=== PATIENT | male | born 1995 | race Caucasian/White ===

== ENCOUNTER 2019-11-10 14:23 | Emergency (ER) | payer OTHER, SELFPAY ==
--- NOTE | ~2019-11-10 | XR_ITS ---
EXAMINATION: XR foot RT min 3V EXAM DATE: 11/10/2019 15:00 INDICATION: Initial encounter following injury, with pain of the right foot. TECHNIQUE: Right foot dorsoplantar, lateral and oblique projections obtained and reviewed. There is no prior study for comparison. FINDINGS: Right metatarsal bones unremarkable. There is acute closed posttraumatic nondisplaced fra cture through the proximal aspect right fifth metatarsal shaft. There is overlying soft tissue swelli ng. No other acute findings. IMPRESSION: Right Dumont fracture. Reviewed, dictated and finalized at location B. ICAL ECONOMIST IMPRESSION: Right Dumont fracture.
--- NOTE | 2019-11-10 14:27 | ED.GENADULT ---
HPI - General Adult General Chief complaint: Extremity Injury, Lower Stated complaint: Right Foot injury Time Seen by Provider: 11/10/19 14:27 Source: patient Mode of arrival: ambulatory Limitations: no limitations History of Present Illness HPI narrative: 24-year-old male [facility] of right foot pain. Patient states that he was in dance class yesterday and was doing some sidestepping and rolled his right foot and heard a crack. Patient states he has been having pain there since then. Patient states he has been taking ibuprofen for his pain. Denies any numbness or tingling to the toes. Patient states he has been walking on it but does have pain when doing so. Patient states he does have a primary doctor at this time. Related Data Home Medications Medication Instructions Recorded Confirmed aripiprazole mg 11/10/19 duloxetine mg PO 11/10/19 quetiapine 11/10/19 Allergies Allergy/AdvReac Type Severity Reaction Status Date / Time metoclopramide Allergy Mild HIVES Verified 05/25/18 03:39 nafcillin Allergy Unknown Unknown Verified 05/25/18 02:39 Review of Systems Review of Systems: Narrative: CONSTITUTIONAL: Denies fever, chills, or sweats. EYES: Denies visual changes, redness, or discharge. ENT: Denies rhinorrhea, congestion, sore throat, or otalgia. CARDIOVASCULAR: Denies chest pain, palpitations, or edema. RESPIRATORY: Denies cough or dyspnea. GASTROINTESTINAL: Denies abdominal pain, nausea, vomiting, or diarrhea. GENITOURINARY: Denies dysuria or hematuria. SKIN: Denies rash or itching. MUSCULOSKELETAL: Denies back pain, joint pain, or myalgia. Right foot pain since yesterday NEUROLOGIC: Denies headache, numbness, or weakness. PSYCHIATRIC: Denies anxiety or depression. PMFSH Comments At the time of my signature I agree with nursing past medical history, surgical, social, and family history. There is no relevant family history pertinent to the presenting complaint. Exam Narrative: Exam Narrative: GENERAL: Well-appearing, well-nourished, and in no acute distress. HEAD: Normocephalic, atraumatic. EYES: PERRLA and EOMI. ENT: Nares clear, no rhinorrhea or epistaxis. Mucous membranes moist. NECK: Supple. No lymphadenopathy CHEST: Clear to auscultation. No respiratory distress. HEART: Regular rate and rhythm. No murmur heard. Normal peripheral pulses. ABDOMEN: Soft, nontender, nondistended, normal active bowel sounds. EXTREMITIES: Patient able to bear weight and ambulate with increased pain to the right foot. No surface trauma, ecchymosis noted on the lateral side of the right foot with slight erythema. No lesions, ulcers or break in skin integrity. The R foot is without obvious asymmetry or deformity when compared to the L foot. No bony step-off, nontender to palpation over the toes, hindfoot or sole. Tenderness over the midfoot on the lateral side of the right foot. Normal plantar/dorsiflexion but does have increase in pain with this motion, normal inversion/eversion. Distal motor and neurovascular status are intact SKIN: Warm, dry, no rash. NEURO: No focal deficits. Alert and oriented x3. Course Vital Signs Vital signs: Vital Signs Temperature 36.6 C 11/10/19 14:38 Pulse Rate 67 11/10/19 14:38 Respiratory Rate 11/10/19 14:38 Blood Pressure 110/79 11/10/19 14:38 Pulse Oximetry 100 11/10/19 14:38 Temperature 36.6 C 11/10/19 14:38 Pulse Rate 67 11/10/19 14:38 Respiratory Rate 11/10/19 14:38 Blood Pressure 110/79 11/10/19 14:38 Pulse Oximetry 100 11/10/19 14:38 Vital signs reviewed. Medical Decision Making Differential Diagnosis Differential Diagnosis: Differential diagnosis: Foot fracture, crush injury, compartment syndrome, contusion, sprain, tendinitis,lisfranc sprain or fracture, avulsion fracture, grown toenail, diabetic ulcer. Notify patient that I am still waiting on the read from the radiologist however and seen at the
[2019-11-10 14:38] VITALS: BP 110/79; PULSE 67; RESP 20; TEMP 36.6; O2SAT 100
== END 2019-11-10 15:31 | disposition home or self-care (01) ==
PROVIDERS: Emergency Provider Nurse Practitioner Family
DX: S92.354A Nondisplaced fracture of fifth metatarsal bone, right foot, initial encounter for closed fracture (principal); X50.9XXA Other and unspecified overexertion or strenuous movements or postures, initial encounter; Y93.41 Activity, dancing
CPT/HCPCS: 73630; 99214; G0463

== ENCOUNTER 2023-12-02 15:00 | Emergency (ER) | payer OTHER, SELFPAY ==
--- NOTE | ~2023-12-02 | XR_ITS ---
EXAMINATION: XR chest 2V Exam Date/Time: 12/02/2023 15:27 CDT HISTORY: cough, URI Comparison: None. RESULT: Lines, tubes, and devices: Abandoned pacing lead. Old sternotomy wires. Lungs and pleura: No volumes with crowding, otherwise clear. Cardiomediastinal silhouette: Stable. Other: No acute osseous or upper abdominal finding. IMPRESSION: No acute cardiopulmonary process. Reviewed, dictated and finalized at location K.
[2023-12-02 15:02] VITALS: BP 132/81; PULSE 105; RESP 18; TEMP 36.8; O2SAT 99
--- NOTE | 2023-12-02 15:20 | ED.URI ---
HPI - URI/Sore Throat General Chief Complaint: Upper Respiratory Infection Stated Complaint: URI Time Seen by Provider: 12/02/23 15:20 Source: patient Mode of arrival: ambulatory Limitations: no limitations History of Present Illness HPI Narrative: Patient is a 28 y/o male who presents the ED with report of URI sx's since Friday night/Friday. Patient complains of fatigue, myalgias, diaphoresis, rhinorrhea, congestion, cough. Denies any known fevers, vomiting, CP. Has been taking Dayquil and Nyquil with some relief. Denies known sick contacts. He is vaccinated for COVID/flu. Related Data Home Medications Medication Instructions Recorded Confirmed aripiprazole 5 mg tablet mg 11/10/19 duloxetine 30 mg capsule,delayed mg PO 11/10/19 release quetiapine 25 mg tablet 11/10/19 Allergies Allergy/AdvReac Type Severity Reaction Status Date / Time metoclopramide Allergy Mild HIVES Verified 12/22/19 08:56 nafcillin Allergy Unknown Unknown Verified 12/22/19 08:56 Review of Systems Review of Systems: CONSTITUTIONAL: see HPI ENT: See HPI. CARDIOVASCULAR: Denies chest pain, palpitations, or edema. RESPIRATORY: See HPI. GASTROINTESTINAL: Denies abdominal pain, vomiting, or diarrhea. MUSCULOSKELETAL: Reports myalgia. 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 CANNOT HAVE MRI Family History Family History Father , auto-immune interstitial lung disease No problems noted. Exam Narrative: GENERAL: Well appearing, obese with BMI of 36.2, non-toxic, in no acute distress. HEAD: Normocephalic, atraumatic. RESPIRATORY: Airway patent, respirations nonlabored. Clear to auscultation bilaterally, no rales, rhonchi, wheezing. No focal lungs sounds. CARDIOVASCULAR: Regular rate and rhythm, +murmur MUSCULOSKELETAL: Moves all extremities. No gross deformities. SKIN: Warm, dry, normal color. NEURO: A&O X3. Speech clear. PSYCHIATRIC: Appropriate mood and affect. Normal interaction. Course Vital Signs Vital signs: Vital Signs Temperature 98.2 F 12/02/23 15:02 Pulse Rate 105 H 12/02/23 15:02 Respiratory Rate 18 12/02/23 15:02 Blood Pressure 132/81 12/02/23 15:02 Pulse Oximetry 99 12/02/23 15:02 Oxygen Delivery Room Air 12/02/23 15:02 Temperature 98.2 F 12/02/23 15:02 Pulse Rate 105 H 12/02/23 15:02 Respiratory Rate 18 12/02/23 15:02 Blood Pressure 132/81 12/02/23 15:02 Pulse Oximetry 99 12/02/23 15:02 Oxygen Delivery Room Air 12/02/23 17:10 MDM - URI/Sore Throat MDM Narrative Medical decision making narrative: patient presented to ED with 2 day history of URI symptoms. Vital signs are stable upon arrival. Patient no acute distress. No respiratory distress or compromise. Viral swabs negative. Chest x-ray clear. Discussed likelihood of viral URI, management of such. Will send in prescriptions for Tessalon Perles and albuterol. Given return precautions. Discharged in stable condition. Vital signs remained stable at time of D/C. Medical Records Attestation: I reviewed the patient's medical records. Lab Data Attestation: I reviewed the patient's lab results. Labs: Lab Results 12/02/23 Range/Units 15:49 Influenza A (RT-PCR) Negative (Negative) Influenza B (RT-PCR) Negative (Negative) RSV (RT-PCR) Negative (Negative) SARS-CoV-2 RNA (RT-PCR) Negative (Negative)
[2023-12-02 16:51] LABS: Influenza A QL RT-PCR Negative (Negative); Influenza B QL RT-PCR Negative (Negative); RSV RNA, RT-PCR Negative (Negative); SARS-CoV-2 RNA PCR Negative (Negative)
== END 2023-12-02 17:50 | disposition home or self-care (01) ==
PROVIDERS: Emergency Provider Physician Assistant
DX: J06.9 Acute upper respiratory infection, unspecified (principal); F90.9 Attention-deficit hyperactivity disorder, unspecified type; F41.9 Anxiety disorder, unspecified; F32.A Depression, unspecified; Z87.74 Personal history of (corrected) congenital malformations of heart and circulatory system; Z20.822 Contact with and (suspected) exposure to COVID-19
CPT/HCPCS: 71046; 87637; 99283

== ENCOUNTER 2024-06-22 07:43 | Emergency (ER) | payer OTHER, SELFPAY ==
[2024-06-22 07:48] VITALS: BP 134/96; PULSE 87; RESP 15; TEMP 36.7; O2SAT 99
[2024-06-22 07:57] VITALS: O2SAT 98
--- NOTE | 2024-06-22 07:58 | PC.NURSE ---
Pt c/o sore throat, cough x2 days with vomiting this morning. Throat slightly angeline.
[2024-06-22] MEDS: SODIUM CHLORIDE 0.9% IV 1,000 ML 999 ML IV CONT (09:14)
[2024-06-22] MEDS: ONDANSETRON INJ 4 MG/2 ML VIAL IV PUSH (09:14)
[2024-06-22 09:15] VITALS: BP 125/79; PULSE 80; RESP 18; TEMP 36.8; O2SAT 99
[2024-06-22 09:18] LABS: Strep Group A RT-PCR NOT DETECTED (Negative)
--- NOTE | 2024-06-22 09:31 | ED.NAVMDI ---
HPI - Nausea/Vomiting/Diarrhea General Chief complaint: Upper Respiratory Infection Stated complaint: I just threw up at work Time Seen by Provider: 06/22/24 08:23 History of Present Illness HPI Narrative: Pt had emesis several times this morning at work. Pt has felt nauseated and not right the last couple of days but has not vomited before today. Pt denies abdominal pain or diarrhea. Pt has mild sore throat. Pt denies fever. Pt denies sick contacts or bad food. Related Data Home Medications Medication Instructions Recorded Confirmed aripiprazole 5 mg tablet mg 11/10/19 duloxetine 30 mg capsule,delayed mg PO 11/10/19 release quetiapine 25 mg tablet 11/10/19 Allergies Allergy/AdvReac Type Severity Reaction Status Date / Time metoclopramide Allergy Mild HIVES Verified 06/22/24 07:47 nafcillin Allergy Unknown Unknown Verified 06/22/24 07:47 Review of Systems Review of Systems: All systems reviewed & are unremarkable except as noted in HPI and below PMFSH Past Medical History Medical History (Updated 06/22/24 @ 09:49 by Valeria Sifuentes III, DO) ADHD (attention deficit hyperactivity disorder) evaluation Anxiety and depression Keloid skin disorder Metatarsal bone fracture Vision loss Surgical History Surgical History 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 CANNOT HAVE MRI Family History Family History Father , auto-immune interstitial lung disease No problems noted. Exam Const: General: healthy appearing and no acute distress Nutritional Appearance: well nourished Orientation/consciousness: patient oriented x3 Limitations: no limitations Neck: Neck: normal visual inspection and no lymphadenopathy Resp: Effort & Inspection: normal respiratory effort Auscultation: clear to auscultation bilaterally Cardio: Rate: regular rate Rhythm: regular rhythm GI: GI Palp: Yes Soft to palpation and No Tenderness to palpation present (GI) Auscultation: normal bowel sounds Back/Spine/Pelvis: Back: no CVA tenderness Skin: General skin exam: normal color Rashes: no rashes Wounds: no wounds Neuro: General: patient oriented x3, moves all extremities, no meningeal signs, no focal motor deficits and CN's II-XI intact bilaterally Cranial nerves: Yes Nystagmus not present Speech: normal speech Extrem: General: normal to inspection and no clubbing, cyanosis or edema Psych: Mental Status: mental status grossly normal Affect: normal affect Course Vital Signs Vital signs: Vital Signs Temperature 98.1 F 06/22/24 07:48 Pulse Rate 87 06/22/24 07:48 Respiratory Rate 15 06/22/24 07:48 Blood Pressure 134/96 H 06/22/24 07:48 Pulse Oximetry 99 06/22/24 07:48 Oxygen Delivery Room Air 06/22/24 07:48 Temperature 98.1 F 06/22/24 10:24 Pulse Rate 89 06/22/24 10:24 Respiratory Rate 18 06/22/24 10:24 Blood Pressure 127/80 06/22/24 10:24 Pulse Oximetry 99 06/22/24 10:24 Oxygen Delivery Room Air 06/22/24 07:57 MDM - Nausea/Vomiting/Diarrhea MDM Narrative Medical decision making narrative: likely gastroenteritis but pt concerned about covid or strep so will screen for those and give IV fluids and zofran. swabs neg. Pt feels better afer zofran and fluds. home on zofran. Lab Data Labs: Lab Results 06/22/24 Range/Units 08:43 Influenza A (RT-PCR) Negative (Negative) Influenza B (RT-PCR) Negative (Negative) RSV (RT-PCR) Negative (Negative) SARS-CoV-2 RNA (RT-PCR) Negative (Negative) Group A Strep (PCR) Not detected (Negative) Discharge Plan Discharge Clinical Impression: Gastroenteritis Patient Disposition: Home, Self-Care Condition: Improved Instructions: Antibiotic Form, Gastroen
[2024-06-22 09:32] LABS: Influenza A QL RT-PCR Negative (Negative); Influenza B QL RT-PCR Negative (Negative); RSV RNA, RT-PCR Negative (Negative); SARS-CoV-2 RNA PCR Negative (Negative)
[2024-06-22 10:24] VITALS: BP 127/80; PULSE 89; RESP 18; TEMP 36.7; O2SAT 99
== END 2024-06-22 10:26 | disposition home or self-care (01) ==
PROVIDERS: Emergency Provider Emergency Medicine
DX: K52.9 Noninfective gastroenteritis and colitis, unspecified (principal); Z20.822 Contact with and (suspected) exposure to COVID-19; F90.9 Attention-deficit hyperactivity disorder, unspecified type; F41.9 Anxiety disorder, unspecified; F32.A Depression, unspecified
CPT/HCPCS: 87637; 87651; 96361; 96374; 99284; J2405; J7030

== ENCOUNTER 2025-05-19 11:32 | Emergency (ER) | payer BC, MEDICAID, SELFPAY ==
[2025-05-19 11:52] VITALS: BP 127/92; PULSE 79; RESP 16; TEMP 36.6; O2SAT 98
--- NOTE | 2025-05-19 12:02 | ED_ITS ---
HPI - Nausea/Vomiting/Diarrhea General Chief complaint: Nausea/Vomiting/Diarrhea Stated complaint: Vomiting Source: patient and RN notes reviewed Mode of arrival: ambulatory Limitations: no limitations History of Present Illness HPI Narrative: 29 y/o male presented with c/o n/v/d. Onset today. Says after eating a chicken breakfast sandwich he vomited while at work. He was sent home, then had an episode of diarrhea. Denies abdominal pain, Hematochezia, melena, hematemesis, body aches, fever or lethargy. Related Data Home Medications ?Medication ?Instructions ?Recorded ?Confirmed ?Last Taken ?Type aripiprazole 5 mg tablet mg 11/10/19 Unknown History duloxetine 30 mg capsule,delayed mg PO 11/10/19 Unkno wn History release quetiapine 25 mg tablet 11/10/19 Unknown History atomoxetine 18 mg capsule mg PO 05/19/25 Unknown Hist ory clonidine HCl 0.1 mg tablet mg 05/19/25 Unknown Histo ry hydroxyzine HCl 10 mg tablet mg 05/19/25 Unknown Hist ory Allergies Allergy/AdvReac Type Severity Reaction Status Date / Time metoclopramide Allergy Mild HIVES Verified 05/19/25 11:50 nafcillin Allergy Unknown Unknown Verified 05/19/25 11:50 Review of Systems Review of Systems: CONSTITUTIONAL: Denies body aches, fever, chills ENT: Denies rhinorrhea, congestion CARDIOVASCULAR: Denies chest pain, palpitations, or edema. RESPIRATORY: Denies cough or dyspnea. GASTROINTESTINAL: Endorses nausea, vomiting, diarrhea. Denies abdominal pain, hematochezia, melena, hematemesis GENITOURINARY: Denies dysuria, hematuria, or CVA tenderness. SKIN: Denies rash, itching, or wounds. MUSCULOSKELETAL: Denies back pain, joint pain, or myalgia. NEUROLOGIC: Denies headache, numbness, tingling, or weakness. All systems reviewed & are unremarkable except as noted in HPI and below PMFSH Past Medical History Medical History (Updated 05/19/25 @ 12:04 by Samira Funes APRN) Metatarsal bone fracture ADHD (attention deficit hyperactivity disorder) evaluation Anxiety and depression Keloid skin disorder Vision loss Surgical History Surgical History Hx of cardiac pacemaker Has been removed, but lead wire remains. 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 Comments At time of signature, I have reviewed and agree with nursing past medical, surgical, social and family history unless otherwise noted. Please see nursing chart for further information. There is no relevant family history pertinent to the presenting complaint Exam Narrative: GENERAL: Well-appearing, and in no acute distress. EYES: EOMI. Conjunctivae normal. ENT: Mucous membranes pink and moist. CHEST: No respiratory distress. Clear to auscultation. HEART: Regular rate and rhythm. No murmur appreciated. Normal peripheral pulses. ABDOMEN: abd soft, nondistended, normal active bowel sounds. nontender abdomen; No guarding, rebound tenderness, asymmetry EXTREMITIES: Normal range of motion. No edema. SKIN: Warm, dry, no rash. Capillary refill normal. Normal skin turgor. NEURO: No focal deficits. Alert and oriented x3. PSYCH: Normal affect. Course Course Emergency Course: Patient is aware of diagnosis, understands and agrees to treatment plan. Anticipatory guidance given. Patient agrees to follow-up as directed and is aware of reasons to seek care at the emergency department. Portions of this record may have been created with voice recognition software Level of Care: Express Care Visit Vital Signs Vital signs: Vital Signs Temperature 97.8 F 05/19/25 11:52 Pulse Rate 79 05/19/25 11:52 Respiratory Rate 16 05/19/25 11:52 Blood Pressure 127/92 H 05/19/25 11:52 Pulse Oximetry 98 05/19/25 11:52 Oxygen Delivery Room Air 05/19/25 11:52 Temperature 97.8 F 05/19/25 11:52 Pulse Rate 79 05/19/25 11:52 Respiratory Rate 16 05/19/25 11:52 Blood Pressure 127/92 H 05/19/25 11:52 Pulse Oximetry 98 05/19/25 11:52 Oxygen Delivery Room Air 05/19/25 11:52 MDM - Nausea/Vomiting/Diarrhea MDM Narrative Medical decision making narrative: Discussed physical exam findings. Advised supportive measures and signs/symptoms to go to the ER. Pt is appropriate for outpt treatment and f/u. Differential Diagnosis Differential diagnosis: Likely traveler's diarrhea, food poisoning, gastroenteritis, drug-induced nausea and vomiting and dehydration Discharge Plan Discharge Clinical Impression: Nausea vomiting and diarrhea Patient Disposition: Home Condition: Stable Instructions: Gastroenteritis (ED), Acute Nausea and Vomiting (ED) Additional Instructions: Stay hydrated. Take small sips of fluid containing electrolytes frequently. Clear liquids (broth, jello, tea, sprite, pedialyte) [place] foods (bananas, rice, applesauce, toast, crackers) Avoid fatty, greasy, fried or spicy foods. Limit dairy until symptoms are improved. [id number] Imodium according to package directions if needed for pe rsistent diarrhea Recommend probiotic such as align or lactobacillus to help with symptoms. Ondansetron as needed for nausea You should go to the hospital if you experience persistent nausea and vomiting that does not resolve and does not allow you to tolerate any food or fluids, fevers, increasing abdominal pain, persistent diarrhea, dizziness, fainting, or for any other concerns. Follow up with primary care provider in 3 days. Patient Language: [place] Island[place] Prescriptions: New ondansetron 4 mg tablet,disintegrating 4 mg PO Q8H PRN (Reason: nausea and vomiting) Qty: 6 0RF No Action quetiapine 25 mg tablet aripiprazole 5 mg tablet duloxetine 30 mg capsule,delayed release(DR/EC) PO tramadol 50 mg tablet 50 mg PO Q6H PRN (Reason: pain) Qty: 10 0RF clonidine HCl 0.1 mg tablet hydroxyzine HCl 10 mg tablet atomoxetine 18 mg capsule PO benzonatate 200 mg capsule 200 mg PO TID PRN (Reason: cough) Qty: 15 0RF albuterol sulfate 90 mcg/actuation HFA aerosol inhaler 2 puff inhalation QID PRN (Reason: shortness of breath or wheezing) Qty: 6.7 0RF ondansetron 4 mg tablet,disintegrating 4 mg PO Q8H PRN (Reason: nausea and vomiting) Qty: 14 0RF Follow-up/Referrals: PHYSICIAN,DIELECTRIC EMBOSSING MACHINE OPERATOR [Primary Care Provider, Internal Medicine] Stand Alone Forms: Work/School Release IP Time of Disposition: 12:06
[2025-05-19] MEDS: ONDANSETRON HCL ODT 4 MG TABLET PO (12:15)
== END 2025-05-19 12:35 | disposition home or self-care (01) ==
PROVIDERS: Emergency Provider Nurse Practitioner Family
DX: R11.2 Nausea with vomiting, unspecified (principal); R19.7 Diarrhea, unspecified; F41.9 Anxiety disorder, unspecified; F32.A Depression, unspecified; F90.9 Attention-deficit hyperactivity disorder, unspecified type
CPT/HCPCS: 99213; A9270; G0463

== ENCOUNTER 2025-06-04 10:24 | Emergency (ER) | payer BC, MEDICAID, SELFPAY ==
--- NOTE | 2025-06-04 10:32 | ED_ITS ---
HPI - URI/Sore Throat General Chief Complaint: Upper Respiratory Infection Stated Complaint: cough, sore throat, sneezing, muscle fatigue Time Seen by Provider: 06/04/25 10:46 Source: patient and RN notes reviewed Mode of arrival: ambulatory Limitations: no limitations History of Present Illness HPI Narrative: 29-year-old male presents concern for sore throat that started last night. Reports sneezing muscle aches. He denies fever, chills, sweats, runny nose, stuffy nose. MD elicited complaint: sore throat Related Data Home Medications ?Medication ?Instructions ?Recorded ?Confirmed ?Last Taken ?Type aripiprazole 5 mg tablet 5 mg 11/10/19 Unknown Histo ry duloxetine 30 mg capsule,delayed 30 mg PO 11/10/19 Un known History release quetiapine 25 mg tablet 25 mg 11/10/19 Unknown Hist ory atomoxetine 18 mg capsule 18 mg PO 05/19/25 Unknown H istory clonidine HCl 0.1 mg tablet mg 05/19/25 Unknown Histo ry hydroxyzine HCl 10 mg tablet 10 mg 05/19/25 Unknown H istory Allergies Allergy/AdvReac Type Severity Reaction Status Date / Time metoclopramide Allergy Mild HIVES Verified 06/04/25 10:35 nafcillin Allergy Unknown Unknown Verified 06/04/25 10:35 Review of Systems Review of Systems: CONSTITUTIONAL: Denies malaise, chills, sweats, or fever. EYES: Denies visual changes, redness, or discharge. ENT: Denies rhinorrhea, congestion, sinus pain, otalgia. Reports sore throat. CARDIOVASCULAR: Denies chest pain, palpitations, or edema. RESPIRATORY: Denies cough. Denies dyspnea. GASTROINTESTINAL: Denies abdominal pain, nausea, vomiting, diarrhea SKIN: Denies rash or itching. MUSCULOSKELETAL: Reports myalgia. NEUROLOGIC: Denies headache. All systems reviewed & are unremarkable except as noted in HPI and below PMFSH Past Medical History Medical History (Updated 06/04/25 @ 10:53 by Rylee Martins NP) Metatarsal bone fracture ADHD (attention deficit hyperactivity disorder) evaluation Anxiety and depression Keloid skin disorder Vision loss Surgical History Surgical History Hx of cardiac pacemaker Has been removed, but lead wire remains. 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 Comments At time of signature, agree with nursing past medical, surgical, social and family history. There is no relevant family history pertinent to the presenting complaint Exam Narrative: GENERAL: Well-appearing, well-nourished, and in no acute distress. HEAD: Normocephalic EYES: PERRLA, conjunctivae clear ENT: Nares clear. Mucous membranes moist. TM pearly willson with dull light reflex bilaterally; no tragal tenderness. Oropharynx erythematous without lesions. Tonsils not enlarged and without exudate, no drooling, no hoarseness, no trismus, uvula midline. NECK: Supple. No lymphadenopathy CHEST: Clear to auscultation, breath sounds equal. No wheezing, rhonchi, rales, or stridor. No respiratory distress, speaks in full sentences. HEART: Regular rate and rhythm. No murmur heard. SKIN: Warm, dry, no rash. NEURO: Alert and oriented x3. PSYCH: Normal mood and affect Course Course Emergency Course: Patient is aware of diagnosis, understands and agrees to treatment plan. Anticipatory guidance given. Patient agrees to follow-up as directed and is aware of reasons to seek care at the emergency department. Portions of this record may have been created with voice recognition software Level of Care: Express Care Visit Vital Signs Vital signs: Vital Signs Temperature 96.6 F L 06/04/25 10:39 Pulse Rate 47 L 06/04/25 10:39 Respiratory Rate 16 06/04/25 10:39 Blood Pressure 124/56 L 06/04/25 10:39 Pulse Oximetry 99 06/04/25 10:39 Temperature 96.6 F L 06/04/25 10:39 Pulse Rate 47 L 06/04/25 10:39 Respiratory Rate 16 06/04/25 10:39 Blood Pressure 124/56 L 06/04/25 10:39 Pulse Oximetry 99 06/04/25 10:39 Reviewed. MDM - URI/Sore Throat MDM Narrative Medical decision making narrative: Differential diagnosis considered: Bermudez virus, strep pharyngitis, allergic rhinitis, upper respiratory tract infection, sinusitis, rhinosinusitis, nasopharyngitis. viral pharyngitis, otitis media, otitis externa, pneumonia, bronchitis, viral cough syndrome, viral syndrome, and influenza. Exam findings show no acute concerns or changes; patient is non-toxic appearing and is in no distress. Patient is appropriate for outpatient treatment and follow-up. Lab Data Attestation: I reviewed the patient's lab results. Labs: Lab Results 06/04/25 Range/Units 10:30 POC Influenza A Ag Negative (Negative) POC Influenza B Ag Negative (Negative) POC SARS CoV-2 Ag Negative (Negative) POC Grp A Strep Screen Positive (Negative) Critical Care Time Critical Care Time Critical Care Time: No Discharge Plan Discharge Clinical Impression: Acute streptococcal pharyngitis Patient Disposition: Home Condition: Stable Instructions: Antibiotic Form, Strep Throat (ED) Additional Instructions: -Take the medication as prescribed. Throw away the toothbrush after 24hours of antibiotic. -Eat and drink things that are easy to swallow, like tea or soup, or popsicles to suck on. -Oral rinses such as: Salt water gargles and/or may use topical anesthetic (eg. Chloraseptic spray) or lozenges to relieve dryness or throat pain). -Take Tylenol and ibuprofen as needed for pain and fever as directed. -Frequent hand washing or hand correspondence section supervisor is one of the best ways to prevent spread of infection. -Follow up with primary care provider in 2-3 days if condition is not improving; or seek ER visit if you have trouble breathing, cannot drink enough fluids, have muffled voice, difficulty opening your mouth, or severe swelling. Patient Language: Syrian Prescriptions: New cefdinir 300 mg capsule 300 mg PO Q12H 10 Days Qty: 20 0RF No Action quetiapine 25 mg tablet 25 mg aripiprazole 5 mg tablet 5 mg duloxetine 30 mg capsule,delayed release(DR/EC) 30 mg PO clonidine HCl 0.1 mg tablet hydroxyzine HCl 10 mg tablet 10 mg atomoxetine 18 mg capsule 18 mg PO ondansetron 4 mg tablet,disintegrating 4 mg PO Q8H PRN (Reason: nausea and vomiting) Qty: 6 0RF albuterol sulfate 90 mcg/actuation HFA aerosol inhaler 2 puff inhalation QID PRN (Reason: shortness of breath or wheezing) Qty: 6.7 0RF ondansetron 4 mg tablet,disintegrating 4 mg PO Q8H PRN (Reason: nausea and vomiting) Qty: 14 0RF Follow-up/Referrals: PHYSICIAN NOT ON STAFF,NONSTAFF [Primary Care Provider] Stand Alone Forms: Work/School Release IP Time of Disposition: 10:54
[2025-06-04 10:39] VITALS: BP 124/56; PULSE 47; RESP 16; TEMP 35.9; O2SAT 99
[2025-06-04 10:56] LABS: EDCOVIDSCREEN Negative (Negative); EDINFLUASCREEN Negative (Negative); EDINFLUBSCREEN Negative (Negative); EDSTREPNEGPOS1 Positive (Negative)
== END 2025-06-04 10:58 | disposition home or self-care (01) ==
PROVIDERS: Emergency Provider Nurse Practitioner
DX: J02.0 Streptococcal pharyngitis (principal); Z20.822 Contact with and (suspected) exposure to COVID-19; F90.9 Attention-deficit hyperactivity disorder, unspecified type; F41.9 Anxiety disorder, unspecified; F32.A Depression, unspecified
CPT/HCPCS: 87426; 87804; 87880; 99213; G0463

== ENCOUNTER 2025-06-08 09:53 | Emergency (ER) | payer BC, SELFPAY ==
--- NOTE | 2025-06-08 09:57 | ED_ITS ---
HPI - General Adult General Chief complaint: Upper Respiratory Infection Stated complaint: SORE THROAT/TIRED/SWEATS/COUGH/+STREP Time Seen by Provider: 06/08/25 09:57 Source: patient Mode of arrival: ambulatory Limitations: no limitations History of Present Illness HPI narrative: Pt is a 29 y/o male presenting with c/o sore throat. Additional sx reported include fatigue/malaise, sweats, cough. Was here 4 days ago and tested positive for GABHS, tx with Cefdinir. Reports compliance with abx without improvement in sx. Denies CP, SOB, N,V,D, fevers. No additional complaints. Related Data Home Medications ?Medication ?Instructions ?Recorded ?Confirmed ?Last Taken ?Type aripiprazole 5 mg tablet 5 mg 11/10/19 Unknown Histo ry duloxetine 30 mg capsule,delayed 30 mg PO 11/10/19 Un known History release quetiapine 25 mg tablet 25 mg 11/10/19 Unknown Hist ory atomoxetine 18 mg capsule 18 mg PO 05/19/25 Unknown H istory clonidine HCl 0.1 mg tablet mg 05/19/25 Unknown Histo ry hydroxyzine HCl 10 mg tablet 10 mg 05/19/25 Unknown H istory Allergies Allergy/AdvReac Type Severity Reaction Status Date / Time metoclopramide Allergy Mild HIVES Verified 06/08/25 11:06 nafcillin Allergy Unknown Unknown Verified 06/08/25 11:06 Review of Systems Review of Systems: CONSTITUTIONAL: Denies body aches, fever, chills, Reports sweats, fatigue, malaise EYES: Denies visual changes, redness, or discharge. ENT: Reports sore throat, denies rhinorrhea, congestion, or otalgia. CARDIOVASCULAR: Denies chest pain, palpitations, or edema. RESPIRATORY: Reports cough denies dyspnea. GASTROINTESTINAL: Denies abdominal pain, nausea, vomiting, or diarrhea. GENITOURINARY: Denies dysuria or hematuria. SKIN: Denies rash, itching, or wounds. MUSCULOSKELETAL: Denies back pain, joint pain, or myalgia. NEUROLOGIC: Denies headache, numbness, tingling, or weakness. PSYCH: Denies depression or anxiety. All systems reviewed & are unremarkable except as noted in HPI and below PMFSH Past Medical History Medical History (Updated 06/08/25 @ 10:29 by Joe Morel APRN) Metatarsal bone fracture ADHD (attention deficit hyperactivity disorder) evaluation Anxiety and depression Keloid skin disorder Vision loss Surgical History Surgical History Hx of cardiac pacemaker Has been removed, but lead wire remains. 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 Exam Narrative: GENERAL: ill-appearing, morbidly obese, diaphoretic. HEAD: Normocephalic, atraumatic. EYES: EOMI. No redness or drainage. Conjunctivae normal. ENT: Mucous membranes pink and moist. Nares clear. No rhinorrhea. TMs normal bilaterally. Posterior pharynx is erythematous without exudate. Uvula midline. NECK: Normal AROM. Supple. CHEST: No respiratory distress. Clear to auscultation. HEART: Bradycardic rate Weak radial pulses ABDOMEN: Soft, normal active bowel sounds EXTREMITIES: Normal range of motion. No edema. SKIN: Warm, dry, no rash. Capillary refill normal. Normal skin turgor. NEURO: No focal deficits. Alert and oriented x3. Gait steady. PSYCH: Normal affect. No signs of depression or anxiety. Course Course Level of Care: Express Care Visit Vital Signs Vital signs: Vital Signs Temperature 96.4 F L 06/08/25 10:08 Pulse Rate 41 L 06/08/25 10:08 Respiratory Rate 16 06/08/25 10:08 Blood Pressure 128/71 06/08/25 10:08 Pulse Oximetry 99 06/08/25 10:08 Temperature 96.5 F L 06/08/25 10:29 Pulse Rate 40 L 06/08/25 10:29 Respiratory Rate 20 06/08/25 10:29 Blood Pressure 137/76 06/08/25 10:29 Pulse Oximetry 99 06/08/25 10:29 Transfer Transfered to: [place] Transportation: ALS Transfer rationale: access to higher level of care Accepting physician: ARCHIE Nunez; MD Breanne Medical Decision Making MDM Narrative Medical decision making narrative: Pt is bradycardic, diaphoretic on exam with complaints of malaise. Bradycardia is new (was present during [facility] visit 4 days ago) as his HR was 79 at time of encounter on 05/19/25. Does take clonidine but has been taking this medication for over a year. Did not initially disclose CHD requiring open heart surgery for mitral valve replacement, pacemaker insertion until asked. Given the aforementioned, I recommended he be transferred to ER for further diagnostic work up via EMS. Pt agreed and requested to be transferred to [place] ER. Verbal report called to ARCHIE Nunez, Breanne HARRY Vital Signs Vital Signs: Vital Signs Temperature 96.4 F L 06/08/25 10:08 Pulse Rate 41 L 06/08/25 10:08 Respiratory Rate 16 06/08/25 10:08 Blood Pressure 128/71 06/08/25 10:08 Pulse Oximetry 99 06/08/25 10:08 Temperature 96.5 F L 06/08/25 10:29 Pulse Rate 40 L 06/08/25 10:29 Respiratory Rate 20 06/08/25 10:29 Blood Pressure 137/76 06/08/25 10:29 Pulse Oximetry 99 06/08/25 10:29 ECG Data EKG #1: Attestation: I personally reviewed and interpreted this ECG as follows: ECG completion date: 06/08/25 ECG completion time: 10:17 Prior ECG tracings: not available for review Ischemic changes: other (No ST elevation) EKG Interpretation: bradycardia, PVCs, no ST changes and widened QRS Discharge Plan Discharge Clinical Impression: Bradycardia, Diaphoresis, Malaise, Strep pharyngitis Patient Disposition: Acute Care Hospital Condition: Stable Patient Language: Upper Sorbian Prescriptions: No Action quetiapine 25 mg tablet 25 mg aripiprazole 5 mg tablet 5 mg duloxetine 30 mg capsule,delayed release(DR/EC) 30 mg PO clonidine HCl 0.1 mg tablet hydroxyzine HCl 10 mg tablet 10 mg atomoxetine 18 mg capsule 18 mg PO ondansetron 4 mg tablet,disintegrating 4 mg PO Q8H PRN (Reason: nausea and vomiting) Qty: 6 0RF albuterol sulfate 90 mcg/actuation HFA aerosol inhaler 2 puff inhalation QID PRN (Reason: shortness of breath or wheezing) Qty: 6.7 0RF ondansetron 4 mg tablet,disintegrating 4 mg PO Q8H PRN (Reason: nausea and vomiting) Qty: 14 0RF Follow-up/Referrals: UNKNOWN,DOCTOR [Non-Staff]
[2025-06-08 10:08] VITALS: BP 128/71; PULSE 41; RESP 16; TEMP 35.8; O2SAT 99
[2025-06-08 10:26] VITALS: BP 128/76
[2025-06-08 10:29] VITALS: BP 137/76; PULSE 40; RESP 20; TEMP 35.8; O2SAT 99
--- NOTE | 2025-06-08 10:42 | ECG_ITS ---
Test Date: 2025-06-08 10:17:33 Measurements Intervals [place] Rate: 46 P: -14 DC: 195 QRS: -79 QRSD: 142 T: 38 QT: 502 QTc: 439 Interpretive Statements SINUS RHYTHM WITH SECOND-DEGREE AV BLOCK WITH 2-1 CONDUCTION MARKED LEFT AXIS DEVIATION [QRS AXIS < -30] RIGHT BUNDLE BRANCH BLOCK [120+ ms QRS DURATION, UPRIGHT V1, 40+ ms S IN I/aVL/V4/V5/V6] ABNORMAL ECG No previous ECG available for comparison Electronically Signed On 06-09-2025 12:36:31 CDT by Marin Downing M.D.
== END 2025-06-08 10:26 | disposition short-term general hospital (02) ==
PROVIDERS: Emergency Provider Registered Nurse
DX: R00.1 Bradycardia, unspecified (principal); R61 Generalized hyperhidrosis; R53.81 Other malaise; J02.0 Streptococcal pharyngitis; F90.9 Attention-deficit hyperactivity disorder, unspecified type; F41.9 Anxiety disorder, unspecified; F32.A Depression, unspecified
CPT/HCPCS: 93005; 99215; G0463

== ENCOUNTER 2025-06-08 11:00 | Emergency (ER) | payer BC, SELFPAY ==
[2025-06-08] VITALS (18 sets, daily range): BP systolic 126–158; BP diastolic 81–96; PULSE 40–73; RESP 13–28; TEMP 37.1; O2SAT 96–100
--- NOTE | ~2025-06-08 | XR_ITS ---
XR chest 1V portable 06/08/2025 14:27 Indication: Cough Procedure: AP portable chest Comparison: 12/02/2023 Findings: There is a pacing lead overlying the heart. Heart size normal. No focal air space disease, pulmonary edema, pleural effusion or suspected pneumothorax. Impression: 1: No acute cardiopulmonary disease. Reviewed, dictated and finalized at location O. Impression: 1: No acute cardiopulmonary disease.
--- NOTE | 2025-06-08 11:06 | ECG_ITS ---
Test Date: 2025-06-08 11:08:14 Measurements Intervals [place] Rate: 48 P: -17 FL: 186 QRS: -59 QRSD: 150 T: 37 QT: 535 QTc: 479 Interpretive Statements SINUS RHYTHM WITH SECOND-DEGREE AV BLOCK WITH TWO-TO-ONE CONDUCTION RIGHT BUNDLE BRANCH BLOCK [120+ ms QRS DURATION, UPRIGHT V1, 40+ ms S IN I/aVL/V4/V5/V6] MARKED LEFT AXIS DEVIATION ABNORMAL ECG Compared to ECG 06/08/2025 10:17:33 NO DIFFERENCE Electronically Signed On 06-09-2025 12:37:29 CDT by Marin Downing M.D.
[2025-06-08 11:32] LABS: Hematocrit 43.4 % (42.0-52.0); Hemoglobin 14.9 g/dL (14.0-18.0); Immature Granulocyte Percent A 0.7 % (0-0.5); Lymphocytes Absolute Auto 1.61 K/mm3 (0.9-3.2); Mean Corpuscular HGB Conc 34.3 g/dl (32-36); Mean Corpuscular Hemoglobin 29.3 pg (26-34); Mean Corpuscular Volume 85.3 fl (80-100); Nucleated Red Blood Cells Absolute Auto 0.000 K/mm3 (0.0-0.012); Nucleated Red Blood Cells Perc 0.0 % (0.0-0.2); Platelet Count Result 176 k/mm3 (150-375); Red Blood Count 5.09 M/mm3 (4.6-6.20); White Blood Count 5.9 K/mm3 (4.5-10.0)
[2025-06-08 11:43] LABS: INR 0.8; Prothrombin Time 11.8 Seconds (11.1-14.7)
[2025-06-08 11:45] LABS: Alanine Aminotransferase 81 U/L (6-50); Albumin Level 4.6 g/dL (3.5-5.1); Alkaline Phosphatase 80 U/L (38-126); Anion Gap 9 mmol/L (4-12); Aspartate Amino Transferase 45 U/L (17-59); Bilirubin,Total 0.8 mg/dL (0.2-1.3); Blood Urea Nitrogen 16 mg/dL (9-20); Calcium 9.1 mg/dL (8.4-10.2); Carbon Dioxide 23 mmol/L (22-30); Chloride 107 mmol/L (98-107); Estimated CRCL calculation 163 ml/min; Estimated Glomerular Filt Rate > 60; Glucose 102 mg/dL (65-110); Potassium 4.5 mmol/L (3.4-5.0); Sodium 139 mmol/L (137-145); Total Protein 7.7 g/dL (6.3-8.2)
[2025-06-08 11:55] LABS: Troponin I < 0.012 ng/mL (0.000-0.034)
--- OUTSIDE RECORDS SUMMARY | 2025-06-08 12:13 | XMS_ITS | Clinical Summary ---
Author Organization [facility] Address [address] [facility] [address] [place] [address] Phone Care Team Providers Care Oil Inspector Name Role Phone Tn, [facility] Unavailab le Unavailable Sandip Cobos MD Unavailable Carolyn Dalton STATISTICAL CLERK, VARNISH MELTER Unavailable [phone] Maryann Wolff STATISTICAL CLERK, VARNISH MELTER Primary Care Provider [phone] Allergies Active Allergy Reactions Criticality Noted Date Comments Nafcillin Rash 1994 Metoclopramide Rash 01/21/2014 Medications cloNIDine 0.1 MG PO TABS Take 0.1 mg by mouth nightly. Active Multiple Vitamin (MULTI-VITAMIN PO) Take 1 Tab by mouth daily. Active Ibuprofen 200 MG Capsule Take 400 mg by mouth. Active hydrOXYzine (ATARAX) 10 MG Tablet 03/09/2020 Active ARIPiprazole (ABILIFY) 5 MG Tablet TK SS T PO QPM 01/24/2020 Active DULoxetine (CYMBALTA) [address] Keller TK ONE C PO QAM 03/01/2020 Active ergocalciferol (VITAMIN D) 60434 UNIT Capsule TAKE 1 CAPSULE BY MOUTH WEEKLY 01/19/2021 Active guar gum (BENEFIBER) Chewable Tablet Take 2 Tablets by mouth daily. Active Ascorbic Acid (Vitamin C) 1000 MG Tablet Take by mouth. Active atomoxetine (STRATTERA) 18 MG Capsule TAKE ONE CAPSULE BY MOUTH EVERY MORNING WITH FOOD 07/08/2023 Active Ferrous Sulfate 325 (65 Fe) MG Tablet Delayed Response Take 1 Tablet by mouth daily. Active DULoxetine (CYMBALTA) [address] Particles Take 60 mg by mouth every morning. 05/01/2024 Active Magnesium 250 MG Tablet Take 500 mg by mouth in the morning and at bedtime. 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 02/05/2012 Transient complete heart blo ck, VVIR pacewmaker 01/09/95, removed 02/15. 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 02/05/2012 Immunizations Immunization Administration Dates Next Due DTAP VACCINE 05/31/2000, 6,06/16/1995,04/15,01/22/1995 Hepatitis A Vaccine, Pediatric/adolescent, 2 Dose Schedule 06/17/2012,11/27/2011 Hepatitis B Vaccine 03/22/2022,02/04/2022 Hepatitis B Vaccine, Pediatric/adolescent 06/16/1995,1994,1994 Hpv, Unspecified Formulation 04/01/2012,11/27/19 12,09/04/2011 Inactivated Polio Vaccine 05/31/2000,,06/16/1995,04/15,01/22/1995 Influenza Vaccine 06/27/2016,06/22/2015 Influenza Vaccine, Quadrivalent, PF 08/07/2018,1 Influenza, Injectable, Quadrivalent 07/03/2020 Influenza, Recombinant, Quadrivalent,injectable, Pf 07/02/2019 Influenza, Seasonal, Injecta ble, Undefined 06/27/2017,06/23/2013,05/24/2012,05/24 MMR Vaccine 05/31/2000,01/20/1996 Meningococcal B, Recombinant 10/08/2016,03/13/20 16 Meningococcal MCV4, Unspecif ied Formulation 11/27/2011,12/09/2008 TDAP Vaccine 07/15/2019,12/09/2008 Varicella Vaccine Live 06/17/2012,10/16/1995 Family History Medical History Relation Name Comments Other-comment Father auto-immune in terstitial lung disease High Cholesterol Mother Hypertension Mother Osteoarthritis Mother Other-comment Mother fibromyalgia Hypertension Sister Other-comment Sister fibromyalgia Relation Name Status Comments Father Mother Alive Sister Alive Social History Tobacco Use Types Packs/Day Years Used Date Smoking Tobacco: Never Smokeless Tobacco: Never Tobacco Cessation:Counseling Given: Not Answered Alcohol Use Standard Drinks/Week Comments Yes 0 (1 standard drink = 0.6 oz pur e alcohol) rare Sex and Gender Information Value Date Recorded Sex Assigned at Male 11/04/2023 10:32 PM MONUMENTAL STONEMASON Legal Sex Male 3:26 AM MONUMENTAL STONEMASON Gender Identity Male 11/04/2023 10:32 PM MONUMENTAL STONEMASON Sexual Orientation Not on file Last Filed Vital Signs Vital Sign Reading Time Taken Comments Blood Pressure 119/81 05/04/2024 12:14 PM CDT Pulse 74 05/04/2024 12:14 PM CDT Temperature 36.5 C (97.7 F) 09/18/2023 1:05 PM MONUMENTAL STONEMASON Respiratory Rate 16 09/18/2023 1:05 PM MONUMENTAL STONEMASON Oxygen Saturation 99% 05/04/2024 12:14 PM CDT Inhaled Oxygen Concentration - - Weight 139.3 kg (307 lb) 05/04/2024 12:14 PM CDT Height 193 cm (6' 4) 05/04/2024 12:14 PM CDT Body Mass Index 37.37 05/04/2024 12:14 PM CDT Plan of Treatment Upcoming Encounters Date Type Department Care Team (Late st Contact Info) Description 10/11/2025 9:30 AM MONUMENTAL STONEMASON Appointment [facility] [address] [place] [address] Sandip Cobos MD [address] [place] [address] 10/11/2025 10:30 AM MONUMENTAL STONEMASON Office Visit [facility] [address] [place] [address] Sandip Cobos MD [address] [place] [address] Health Maintenance Due Date Last Done Comments Influenza Immunization (#1) 05/16/202506/15, 07/02/2019, 08/07/2018, Additional history exists SARS-COV-2 Immunization (2024- season) 2025 08/03/2022, 01/24/2022, 09/04/2021, Additional history exists DTaP/Tdap/Td Immunization (8 - Td or Tdap) 07/15/2029 07/15/2019, 12/09/2008, 05/31/2000, Additional history exists Respiratory Syncytial Virus (RSV) Immunization (Adult) (1 - 1-dose 75+ series) 2069 Meningococcal Immunization (ACWY) Completed 11/27/2011, 12/09/2008 Human Papillomavirus (HPV) Immunization Completed 04/01/2012, 11/27/2011, 09/04/2011 Hepatitis C Virus (HCV) Screening Completed 01/24/2022 Hepatitis B Immunization Completed 022, 02/04/2022, 06/16/1995, Additional history exists Pneumococcal Immunization Combined Aged Out No longer eligible based on patient's age to complete this topic Rotavirus Immunization Aged Out No lo nger eligible based on patient's age to complete this topic Insurance [facility] hand tier [facility] MEDICAID [place] MEDICAID [facility] SHARED hand tier MEDICAID [facility] * Guarantor: RAMAN REINA Account Type Relation to Patient Date of Phone Billing Address [employer]ability Self 1995 [phone] (Work) [address] [place] [address] Care Teams Oil Inspector Relationship Specialty Start Date End Date Maryann Wolff APRN, VARNISH MELTER [address] [place] [address] PCP - General Advanced Practice Nurse 04/29/23 [facility] 02/25/17 Sandip Cobos MD [address] [place] [address] Consulting Physician Pediatric Cardiology 04/11/22 Carolyn Dalton APRN, VARNISH MELTER [address] [place] [address] Nurse Practitioner Advanced Practice Nurse 04/09/23
--- OUTSIDE RECORDS SUMMARY | 2025-06-08 12:13 | XMS_ITS | Encounter Summary ---
Author Organization [facility] [place] Address [address] [place] [address] Phone Care Team Providers Care Technical Adjuster Name Role Phone Zachary Umana MD Primary Care Provider [phone] Ct, [facility] Unavailab le Unavailable Gonsalo Galan MD Unavailable Sandip Cobos MD Unavailable [phone] Carolyn Dalton CRUSHER AND BINDER OPERATOR, FINISHER COLD ROLLING Unavailable [phone] Maryann Wolff CRUSHER AND BINDER OPERATOR, FINISHER COLD ROLLING Primary Care Provider [phone] Encounter Details Date Type Department Care Team (Late st Contact Info) Description 08/06/2022 Care Management [facility] [address] [place] [address] Jake Decker MD [address] [place] [address] Social History Tobacco Use Types Packs/Day Years Used Date Smoking Tobacco: Never Smokeless Tobacco: Never Alcohol Use Standard Drinks/Week Comments Yes 0 (1 standard drink = 0.6 oz pur e alcohol) rare Sex and Gender Information Value Date Recorded Sex Assigned at Male 11/04/2023 10:32 PM CHILD DAYCARE WORKER Legal Sex Male 3:26 AM CHILD DAYCARE WORKER Gender Identity Male 11/04/2023 10:32 PM CHILD DAYCARE WORKER Sexual Orientation Not on file COVID-19 Exposure Response Date Recorded In the last 10 days, have yo u been in contact with someone who was confirmed or suspected to have Coronavirus/COVID-19? No / Unsure 08/06/2022 10:32 AM CHILD DAYCARE WORKER documented as of this encounter Functional Status * Question Answer Date of Assessment Author Little interest or pleasure in doing things Not at all 08/06/2022 11:00 AM CHILD DAYCARE WORKER Laura Upton Feeling down, depressed, or hopeless Not at all 08/06/2022 11:00 AM CHILD DAYCARE WORKER Laura Upton * Over the past 2 weeks, how often have you been bothered by any of the following problems? Question Answer Date of Assessment Author Patient Health Questionnaire -2 Score 0 08/06/2022 11:00 AM CHILD DAYCARE WORKER Laura Upton documented as of this encounter Plan of Treatment Upcoming Encounters Date Type Department Care Team (Late st Contact Info) Description 10/11/2025 9:30 AM CHILD DAYCARE WORKER [facility] [address] [place] [address] Sandip Cobos MD [address] [place] [address] 10/11/2025 10:30 AM CHILD DAYCARE WORKER Office Visit [facility] [address] [place] [address] Sandip Cobos MD [address] [place] [address] Scheduled Orders Name Type Priority Associated Diagnoses Orde r Schedule ONKOSIGHT NGS JAK2 REFLEX TO MPL/CALR SEQUENCING, TJ45 Lab Routine Splenomegaly Abnormal LFTs Gilbert's syndrome Transient complete heart block, VVIR pacewmaker 01/09/95, removed 02/15. 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 Expected: 08/06/2022, Expires: 08/06/2022 documented as of this encounter Visit Diagnoses Diagnosis Splenomegaly- Primary Abnormal LFTs Other abnormal blood chemistry Gilbert's syndrome Disorders of bilirubin excretion Transient complete heart block, VVIR pacewmaker 01/09/95, removed 02/15. 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 documented in this encounter Care Teams Technical Adjuster Relationship Specialty Start Date End Date Zachary Umana MD [address] [place], [place] [id number] PCP - General Family Medicine 12/02/14 04/28/23 Maryann Wolff APRN, FINISHER COLD ROLLING [address] [facility] [place] [address] PCP - General Advanced Practice Nurse 04/29/23 [facility] 02/25/17 Gonsalo Galan MD Consulting Physician Pediatric Cardiology 01/05/1903/16 Sandip Cobos MD [address] [place] [address] Consulting Physician Pediatric Cardiology 04/11/22 Carolyn Dalton APRN, FINISHER COLD ROLLING [address] [place] [address] Nurse Practitioner Advanced Practice Nurse 04/09/23 documented as of this encounter
--- OUTSIDE RECORDS SUMMARY | 2025-06-08 12:13 | XMS_ITS | Clinical Summary ---
Author Organization [facility] Address [address] [place] [address] Care Team Providers Care Ux Developer Name Role Phone New Maryann Bray [facility] Primary Care Provider [phone] Allergies Active Allergy Reactions Criticality Noted Date Comments Nafcillin Hives 01/24/2022 Metoclopramide Hives High 01/24/2022 Medications hydrOXYzine 10 MG tablet Take 1 tablet (10 mg total) by mouth 3 (three) times daily as needed for Itching. Active atomoxetine 10 MG capsule Take 1 capsule (10 mg total) by mouth daily. Active multi vitamin/minerals tablet Take 1 tablet by mouth daily. Active cloNIDine (CATAPRES) 0.1 MG tablet Take 1 tablet (0.1 mg total) by mouth nightly. Active DULoxetine (CYMBALTA) 30 MG capsule Take 1 capsule (30 mg total) by mouth every morning. 2 Active vitamin D2, ergocalciferol, (DRISDOL) 59637 UNITS capsule Take 800 capsules (1,000 mg total) by mouth once a week. 2 Active ondansetron (ZOFRAN-ODT) 4 MG disintegrating tablet DISSOLVE 1 TABLET ON THE TONGUE EVERY 8 HOURS NEEDED 1 Active Wheat Dextrin (BENEFIBER) Chew TabIndications:prn Chew 2 tablets by mouth daily. Indications: prn Active ARIPiprazole (ABILIFY) 5 MG tablet 2 Active NON FORMULARY by Other route. Otc iron Active ondansetron (ZOFRAN-ODT) 8 MG disintegrating tablet DISSOLVE 1 TABLET ON THE TONGUE THREE TIMES DAILY NEEDED 2 Active vitamin C (ASCORBIC ACID) 1000 MG tablet Take by mouth. Active atomoxetine (STRATTERA) 18 MG Cap capsule TAKE ONE CAPSULE BY MOUTH EVERY MORNING WITH FOOD 3 Active ferrous sulfate EC 325 (65 Fe) MG tablet Take 1 tablet by mouth daily. Active Active Problems No known active problems Immunizations Immunization Administration Dates Next Due MODERNA COVID-19 (12+) MRNA, LNP-S, PF, 100 MCG/ 0.5 ML DOSE 02/15/2021,01/18/2021 PFIZER COVID-19 (WRIGHT CAP), MRNA, LNP-S, PF, 30 MCG/0.3 ML TATYANA-SUCROSE, IM 01/24/2022 Family History Medical History Relation Comments Crohns Disease Cousin first cousin auto immune lung disorder Father Colon Cancer Maternal Grandmother 94 Irritable bowel syndrome Mother Celiac disease Other Celiac disease r eported on father's side - unknown details Betchets syndrome Paternal Aunt Crohns Disease Paternal Aunt Irritable bowel syndrome Sister Relation Status Comments Cousin Alive Father Maternal Grandmother Mother Alive Other Alive Paternal Aunt Alive Sister Alive Social History Tobacco Use Types Packs/Day Years Used Date Smoking Tobacco: Never Smokeless Tobacco: Never Tobacco Cessation:Counseling Given: No Alcohol Use Standard Drinks/Week Comments Never 0 (1 standard drink = 0.6 oz pur e alcohol) PHQ-2 Answer Date Recorded Patient Health Questionnaire-2 Score 0 08/04/2023 Sex and Gender Information Value Date Recorded Sex Assigned at Not on file Legal Sex Male 9:15 PM AD TRAFFICKER Gender Identity Not on file Sexual Orientation Not on file Last Filed Vital Signs Vital Sign Reading Time Taken Comments Blood Pressure 120/74 08/04/2023 1:34 PM AD TRAFFICKER Pulse 74 08/04/2023 1:34 PM AD TRAFFICKER Temperature 36.8 C (98.3 F) 08/04/2023 1:34 PM AD TRAFFICKER Respiratory Rate 16 08/04/2023 1:34 PM AD TRAFFICKER Oxygen Saturation 100% 08/04/2023 1:34 PM AD TRAFFICKER Inhaled Oxygen Concentration - - Weight 136.5 kg (301 lb) 08/04/2023 1:34 PM AD TRAFFICKER Height 190.5 cm (6' 3) 08/04/2023 1:34 PM AD TRAFFICKER Body Mass Index 37.62 08/04/2023 1:34 PM AD TRAFFICKER Plan of Treatment Health Maintenance Due Date Last Done Comments Annual Physical 1997 PHQ-2 (Physician [place]) 09/15/2024 08/04/2023 COVID-19 Vaccine ( season) 2025 01/24/2022, 02/15/2021, 01/18/2021 DTaP, Tdap and Td Vaccines (8 - Td or Tdap) 07/15/2029 07/15/2019, 12/09/2008, 05/31/2000, Additional history exists Meningococcal Vaccine Aged Out 11/27/2011, 009 No longer eligible based on patient's age to complete this topic HPV Vaccines Completed 04/01/2012, 11/13, 09/04/2011 Meningococcal B Vaccine Completed 10/08/2016, 03/13 Hepatitis C Completed 01/24/2022 Hepatitis B Vaccines Completed 03/22/2022, 02/04/2022, 06/16/1995, Additional history exists Pneumococcal Vaccine: Pediatrics (0 to 5 Years) and At-Risk Patients (6 to 49 Years) Aged Out No longer eligible based on patient's age to complete this topic RSV Immunizations Under 20 Months Aged Out No longer eligible based on patient's age to complete this topic Procedures Procedure Name Priority Date/Time Associated Diagnosis Comments HEPATITIS C ANTIBODY W/RFX TO HCV RNA Routine 01/24/2022 10:00 AM CDT from Last 3 Months or Most Recently Relevant to Health Maintenance Results * HEPATITIS C ANTIBODY W/RFX TO HCV RNA (01/24/2022 10:00 AM CDT) HEPATITIS C AB NON-REACTI VE NON-REACT DIANNE [facility] SIGNAL TO CUTOFF 0.02 <[address] [facility] Comment: HCV antibody was non-reactive. There is no laboratory evidence of HCV infection. In most cases, no further action is required. However, if recent HCV exposure is suspected, a test for HCV RNA (test code 56488) is suggested. For additional information please refer to http://education.[employer]/faq/XGI11c5 (This link is being provided for informational/ educational purposes only.) 01/24/2022 10:0 0 AM CDT 01/24/2022 10:00 AM CDT us Shaenl Beal HUSBANDRY PERSON LABORATORY Final Result [facility] [id number] [phone] from Last 3 Months or Most Recently Relevant to Health Maintenance Insurance [facility] MEDICAID Care Teams Ux Developer Relationship Specialty Start Date End Date Maryann Wol[place] [address] PCP - General Nurse Practitioner Family 02/04/23
--- NOTE | 2025-06-08 14:29 | ED_ITS ---
HPI - General Adult General Chief complaint: Arrhythmia/Palpitations Stated complaint: low heart rate Source: patient Mode of arrival: EMS Limitations: no limitations History of Present Illness HPI narrative: 29-year-old with a history of mitral valve replacement brought in from urgent care with a complaints of sore throat ,not feeling well he was diagnosed with strep throat is on antibiotic ,was found to have low heart rate . Pt states he has low heart rate and does follow with [facility] in [place] ,however he missed his appointment 2 days ago as he diagnosed with strep .denies any Chest pain or SOB , Dizziness Radiation: non-radiation Related Data Home Medications ?Medication ?Instructions ?Recorded ?Confirmed ?Last Taken ?Type aripiprazole 5 mg tablet 5 mg 11/10/19 Unknown Histo ry duloxetine 30 mg capsule,delayed 30 mg PO 11/10/19 Un known History release quetiapine 25 mg tablet 25 mg 11/10/19 Unknown Hist ory atomoxetine 18 mg capsule 18 mg PO 05/19/25 Unknown H istory clonidine HCl 0.1 mg tablet mg 05/19/25 Unknown Histo ry hydroxyzine HCl 10 mg tablet 10 mg 05/19/25 Unknown H istory Allergies Allergy/AdvReac Type Severity Reaction Status Date / Time metoclopramide Allergy Mild HIVES Verified 06/08/25 11:06 nafcillin Allergy Unknown Unknown Verified 06/08/25 11:06 Review of Systems 2 Review of Systems: All systems reviewed & are unremarkable except as noted in HPI and below Constitutional: Constitutional: Reports no additional constitutional complaints Eyes: Eyes: Reports no additional eye complaints ENT: Reports system reviewed and no additional complaints, except as documented Respiratory: Respiratory: Reports no additional respiratory complaints Gastrointestinal: Gastrointestinal: Reports no additional gastrointestinal complaints Integumentary/Breasts: Skin/Breast: Reports system reviewed and no additional complaints, except as docu Neurologic: Reports system reviewed and no additional complaints, except as documented [facility] Past Medical History Medical History Metatarsal bone fracture ADHD (attention deficit hyperactivity disorder) evaluation Anxiety and depression Keloid skin disorder Vision loss Surgical History Surgical History Hx of cardiac pacemaker Has been removed, but lead wire remains. 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 Exam 2 Narrative: GENERAL: Well-appearing, well-nourished, and in no acute distress. HEAD: Normocephalic, atraumatic. EYES: PERRLA and EOMI. ENT: Nares clear, no rhinorrhea or epistaxis. Mucous membranes moist. NECK: Supple. CHEST: Clear to auscultation. No respiratory distress. HEART: Bradycardia. No murmur heard. Normal peripheral pulses. ABDOMEN: Soft, nontender, nondistended, normal active bowel sounds. EXTREMITIES: Normal range of motion. No edema. SKIN: Warm, dry, no rash. NEURO: No focal deficits. Alert and oriented x3. PSYCH: Normal mood and affect. Course Course Emergency Course: Is still remained half bradycardic heart rate between 45 and 60. But he is asymptomatic and his blood pressure has been stable EKG shows sinus Kwame with right bundle . Informed patient and his mother about the lab work, EKG and chest x-ray findings recommended her to follow with his magnet valve assembler. Vital Signs Vital signs: Vital Signs Temperature 37.1 C 06/08/25 10:58 Pulse Rate 51 L 06/08/25 10:58 Respiratory Rate 20 06/08/25 10:58 Blood Pressure 158/83 H 06/08/25 10:58 Pulse Oximetry 99 06/08/25 10:58 Oxygen Delivery Room Air 06/08/25 10:58 Temperature 37.1 C 06/08/25 10:58 Pulse Rate 40 L 06/08/25 13:49 Respiratory Rate 16 06/08/25 13:49 Blood Pressure 136/81 06/08/25 13:49 Pulse Oximetry 100 06/08/25 13:49 Oxygen Delivery Room Air 06/08/25 10:58 Medical Decision Making Vital Signs Vital Signs: Vital Signs Temperature 37.1 C 06/08/25 10:58 Pulse Rate 51 L 06/08/25 10:58 Respiratory Rate 20 06/08/25 10:58 Blood Pressure 158/83 H 06/08/25 10:58 Pulse Oximetry 99 06/08/25 10:58 Oxygen Delivery Room Air 06/08/25 10:58 Temperature 37.1 C 06/08/25 10:58 Pulse Rate 40 L 06/08/25 13:49 Respiratory Rate 16 06/08/25 13:49 Blood Pressure 136/81 06/08/25 13:49 Pulse Oximetry 100 06/08/25 13:49 Oxygen Delivery Room Air 06/08/25 10:58 Lab Data Lab results reviewed: Yes I reviewed the patient's lab results. 06/08/25 11:23 06/08/25 11:23 Labs: Lab Results 06/08/25 Range/Units 11:23 WBC 5.9 (4.5-10.0) K/mm3 RBC 5.09 (4.6-6.20) M/mm3 Hgb 14.9 (14.0-18.0) g/dL Hct 43.4 (42.0-52.0) % MCV 85.3 (80-100) fl MCH 29.3 (26-34) pg MCHC 34.3 (32-36) g/dl RDW 12.4 (11.5-14.5) % Plt Count 176 (150-375) k/mm3 MPV 8.7 (7.4-10.4) fl Immature Gran % (Auto) 0.7 H (0-0.5) % Neut % (Auto) 61.4 (45.5-73.1) % Lymph % (Auto) 27.2 (18.3-44.2) % [place] % (Auto) 7.9 (2.6-8.5) % Eos % (Auto) 2.5 (0-4.4) % Baso % (Auto) 0.3 (0.2-1.2) % Lymph # (Auto) 1.61 (0.9-3.2) K/mm3 [place] # (Auto) 0.5 (0.1-0.6) K/mm3 Eos # (Auto) 0.2 (0-0.3) K/mm3 Baso # (Auto) 0.0 (0.0-0.1) K/mm3 Abs Immat Gran (auto) 0.04 H (0.00-0.031) K/mm3 Absolute Neuts (auto) 3.6 (1.3-6.7) K/mm3 Absolute Nucleated RBC 0.000 (0.0-0.012) K/mm3 Nucleated RBC % 0.0 (0.0-0.2) % PT 11.8 (11.1-14.7) Seconds INR 0.8 Sodium 139 (137-145) mmol/L Potassium 4.5 (3.4-5.0) mmol/L Chloride 107 (98-107) mmol/L Carbon Dioxide 23 (22-30) mmol/L Anion Gap 9 (4-12) mmol/L BUN 16 (9-20) mg/dL Creatinine 0.91 (0.7-1.3) mg/dL Estim Creat Clear Calc 163 ml/min Estimated GFR > 60 (59 - ) Glucose 102 (65-110) mg/dL Calcium 9.1 (8.4-10.2) mg/dL Total Bilirubin 0.8 (0.2-1.3) mg/dL AST 45 (17-59) U/L ALT 81 H (6-50) U/L Alkaline Phosphatase 80 (38-126) U/L Troponin I < 0.012 (0.000-0.034) ng/mL Total Protein 7.7 (6.3-8.2) g/dL Albumin 4.6 (3.5-5.1) g/dL Imaging Data Radiologist's impression: ITS Impressions Chest X-Ray 06/08/25 14:29 Impression: 1: No acute cardiopulmonary disease. ECG Data EKG #1: ECG completion date: 06/08/25 ECG completion time: 11:08 EKG Interpretation: bradycardia (48), no ectopy, RBBB and no acute changes Discharge Plan Discharge Clinical Impression: Bradycardia Patient Disposition: Home Condition: Stable Instructions: Bradycardia (ED) Patient Language: Belarusian Prescriptions: No Action quetiapine 25 mg tablet 25 mg aripiprazole 5 mg tablet 5 mg duloxetine 30 mg capsule,delayed release(DR/EC) 30 mg PO clonidine HCl 0.1 mg tablet hydroxyzine HCl 10 mg tablet 10 mg atomoxetine 18 mg capsule 18 mg PO ondansetron 4 mg tablet,disintegrating 4 mg PO Q8H PRN (Reason: nausea and vomiting) Qty: 6 0RF albuterol sulfate 90 mcg/actuation HFA aerosol inhaler 2 puff inhalation QID PRN (Reason: shortness of breath or wheezing) Qty: 6.7 0RF ondansetron 4 mg tablet,disintegrating 4 mg PO Q8H PRN (Reason: nausea and vomiting) Qty: 14 0RF Follow-up/Referrals: New,Maryann [Other] Stand Alone Forms: Work/School Release IP Time of Disposition: 14:37
== END 2025-06-08 14:48 | disposition home or self-care (01) ==
PROVIDERS: Emergency Provider Family Medicine
DX: R00.1 Bradycardia, unspecified (principal); J02.0 Streptococcal pharyngitis; F90.9 Attention-deficit hyperactivity disorder, unspecified type; F41.9 Anxiety disorder, unspecified; F32.A Depression, unspecified; Z95.2 Presence of prosthetic heart valve; Z87.74 Personal history of (corrected) congenital malformations of heart and circulatory system; Z79.899 Other long term (current) drug therapy; I44.1 Atrioventricular block, second degree; I45.10 Unspecified right bundle-branch block
CPT/HCPCS: 36415; 71045; 80053; 84484; 85025; 85610; 93005; 99284

== ENCOUNTER 2025-09-11 10:05 | Emergency (ER) | payer BC, MEDICAID, SELFPAY ==
[2025-09-11 10:22] VITALS: BP 128/78; PULSE 80; RESP 16; TEMP 35.9; O2SAT 99
--- NOTE | 2025-09-11 10:24 | ED.URI ---
HPI - URI/Sore Throat General Chief Complaint: Upper Respiratory Infection Stated Complaint: sore throat, muscle aches, vomiting Time Seen by Provider: 09/11/25 10:30 Source: patient Mode of arrival: ambulatory Limitations: no limitations History of Present Illness HPI Narrative: Hector is a 30-year-old male patient presenting to the clinic today with complaints of sore throat, body aches, nausea, vomiting, nasal congestion, and cough x1 day. Has been taking Tylenol for his symptoms. He denies any chest pain or shortness of breath this time. Related Data Home Medications ?Medication ?Instructions ?Recorded ?Confirmed ?Last Taken ?Type aripiprazole 5 mg tablet 5 mg 11/10/19 Unknown History duloxetine 30 mg capsule,delayed 30 mg PO 11/10/19 Unknown History release quetiapine 25 mg tablet 25 mg 11/10/19 Unknown History atomoxetine 18 mg capsule 18 mg PO 05/19/25 Unknown History clonidine HCl 0.1 mg tablet mg 05/19/25 Unknown History hydroxyzine HCl 10 mg tablet 10 mg 05/19/25 Unknown History Allergies Allergy/AdvReac Type Severity Reaction Status Date / Time metoclopramide Allergy Mild HIVES Verified 09/11/25 10:15 nafcillin Allergy Unknown Unknown Verified 09/11/25 10:15 Review of Systems Review of Systems: Pertinent positives per HPI. Patient denies any rash, headache, visual changes, dizziness, shortness of breath, chest pain, palpitations, nausea, vomiting, diarrhea, constipation, abdominal pain, or any urinary issues. [facility] Past Medical History Medical History (Updated 09/11/25 @ 10:34 by Ham Rueda APRN) Metatarsal bone fracture ADHD (attention deficit hyperactivity disorder) evaluation Anxiety and depression Keloid skin disorder Vision loss Surgical History Surgical History Hx of cardiac pacemaker Has been removed, but lead wire remains. 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 Comments At the time of my signature, I reviewed and agree with the nursing past medical, surgical, social, and family history. There is no relevant family history pertinent to the patient complaint. Exam Narrative: General: Well-developed, morbidly so, in no apparent distress Head: Normocephalic, atraumatic Eyes: Pupils equally round and reactive to light bilaterally, EOM intact, sclera and conjunctive clear, no discharge, lids normal Ears: TMs intact and clear, ear canals clear, no drainage, grossly hearing normal. Nose: Nares patent, clear nasal discharge, mild inflammation, no sinus tenderness. Mouth: Oral pharynx red with mild tonsillar enlargement without lesions or masses, good dentition, MMM. Neck: Supple, trachea midline, no enlargement of anterior or posterior cervical nodes, no thyroid masses or goiter palpable. Cardio: Regular rate and rhythm, s1 and s2 normal, no murmur appreciated. Resp: Clear to auscultation bilaterally, no rhonchi, rales, wheezing or rubs Course Course Level of Care: Express Care Visit Vital Signs Vital signs: Vital Signs Temperature 35.9 C L 09/11/25 10:22 Pulse Rate 80 09/11/25 10:22 Respiratory Rate 16 09/11/25 10:22 Blood Pressure 128/78 09/11/25 10:22 Pulse Oximetry 99 09/11/25 10:22 Temperature 35.9 C L 09/11/25 10:22 Pulse Rate 80 09/11/25 10:22 Respiratory Rate 16 09/11/25 10:22 Blood Pressure 128/78 09/11/25 10:22 Pulse Oximetry 99 09/11/25 10:22 [facility] MDM Narrative Medical decision making narrative: At the time of visit patient is resting comfortably on the exam table. Patient appears to be nontoxic. Complaints of sore throat, body aches, nausea, vomiting, nasal congestion, and cough x1 day. Has been taking Tylenol for his symptoms. He denies any chest pain or shortness of breath this time. On exam patient has bilateral TMs intact and clear, clear nasal drainage, mild anterior turbinate inflammation, oral pharynx red with mild tonsillar enlargement, no cervical lymphadenopathy, lung sounds are clear, heart rates regular rate and rhythm. COVID, flu, and strep test were ordered. Labs: COVID, influenza, and strep test were performed. Is a testing was negative. Strep test was positive. Plan: Patient has URI/strep pharyngitis. Prescription for clindamycin was sent to the pharmacy as patient has allergies to penicillin antibiotics and azithromycin will interfere with his other medications. Work note was given Supportive measures were discussed with the patient and they voiced understanding discharge instructions and agrees to treatment plan. Return precautions reviewed Differential Diagnosis Differential Diagnosis: Differential diagnostic considerations for upper respiratory infection include upper respiratory infection, croup, otitis media, sinusitis, viral infection, bronchitis, influenza, pharyngitis, strep, uvulitis. Lab Data Labs: Lab Results 09/11/25 Range/Units 10:36 POC Influenza A Ag Negative (Negative) POC Influenza B Ag Negative (Negative) POC SARS CoV-2 Ag Negative (Negative) POC Grp A Strep Screen Positive (Negative) Discharge Plan Discharge Clinical Impression: Strep pharyngitis Upper respiratory infection Qualifiers: URI type: unspecified URI Qualified Code(s): J06.9 - Acute upper respiratory infection, unspecified Patient Disposition: Home Condition: Stable Instructions: Antibiotic Form, Strep Throat (ED), Cold Symptoms (ED) Additional Instructions: Strep test was positive in the clinic today. COVID and influenza testing was negative Change your toothbrush in 24 hours after initiation of the antibiotic Take prescription medications only as prescribed-amoxicillin Increase fluids and stay well hydrated May take Tylenol or motrin as directed on bottle for pain/fever May use Flonase 1 spray in each nare daily May take OTC antihistamines such as Zyrtec or Claritin daily as directed on bottle May apply Vicks vapor rub to chest to open sinuses Sinus rinses for congestion Cepacol spray, cough drops, throat lozenges, warm tea with honey/lemon, gargle salt water to soothe throat BRAT diet for diarrhea Clear liquids x 24 hours then advance as tolerated for nausea/vomiting Go to the ED if you develop a worsening in your condition- high fever not controlled by Tylenol or Motrin, dehydration, weakness, lethargy, shortness of breath, or chest pain. Follow up with your PCP in 3-5 days if symptoms persist. Patient Language: Faroese Prescriptions: New clindamycin HCl [Cleocin HCl] 300 mg capsule 300 mg PO Q8H 10 Days Qty: 30 0RF No Action quetiapine 25 mg tablet 25 mg aripiprazole 5 mg tablet 5 mg duloxetine 30 mg capsule,delayed release(DR/EC) 30 mg PO clonidine HCl 0.1 mg tablet hydroxyzine HCl 10 mg tablet 10 mg atomoxetine 18 mg capsule 18 mg PO ondansetron 4 mg tablet,disintegrating 4 mg PO Q8H PRN (Reason: nausea and vomiting) Qty: 6 0RF albuterol sulfate 90 mcg/actuation HFA aerosol inhaler 2 puff inhalation QID PRN (Reason: shortness of breath or wheezing) Qty: 6.7 0RF ondansetron 4 mg tablet,disintegrating 4 mg PO Q8H PRN (Reason: nausea and vomiting) Qty: 14 0RF Follow-up/Referrals: PHYSICIAN NOT ON STAFF,NONSTAFF [Primary Care Provider] Stand Alone Forms: Work/School Release IP Time of Disposition: 10:35 Quality NIHSS Nursing Documentation ED NIHSS nursing documentation: reviewed/agree
[2025-09-11 10:38] LABS: EDCOVIDSCREEN Negative (Negative); EDINFLUASCREEN Negative (Negative); EDINFLUBSCREEN Negative (Negative); EDSTREPNEGPOS1 Positive (Negative)
== END 2025-09-11 10:40 | disposition home or self-care (01) ==
PROVIDERS: Emergency Provider Nurse Practitioner Family
DX: J02.0 Streptococcal pharyngitis (principal); Z20.822 Contact with and (suspected) exposure to COVID-19; F90.9 Attention-deficit hyperactivity disorder, unspecified type; F41.9 Anxiety disorder, unspecified; F32.A Depression, unspecified
CPT/HCPCS: 87426; 87804; 87880; 99213; G0463